=== PATIENT | female | born 1975 | race Caucasian/White ===

== ENCOUNTER 2021-01-26 19:09 | Emergency (ER) | payer OTHER ==
[~2021-01-26] VITALS: Ht 157.5 cm; Wt 90.3 kg
[~2021-01-26 19:09] MED LIST: HYDACE5 PO; IBUP600 PO; MIGRAINE RELIE1 EACH
== END 2021-01-26 21:15 | disposition left against medical advice (07) ==
LOC: ER 19:09
DX: M79.674 Pain in right toe(s) (principal); Z53.21 Procedure and treatment not carried out due to patient leaving prior to being seen by health care provider
CPT/HCPCS: 73660; 99283-25

== ENCOUNTER 2021-06-28 00:56 | Emergency (ER) | payer OTHER ==
[~2021-06-28] VITALS: Ht 160 cm; Wt 90.7 kg
[2021-06-28] MEDS ORDERED: IBUP400 PO (03:18)
[2021-06-28] MEDS ORDERED: ACET500 PO (03:18)
== END 2021-06-28 03:35 | disposition home or self-care (01) ==
LOC: ER 00:56
DX: M21.611 Bunion of right foot (principal); M79.674 Pain in right toe(s); Z88.6 Allergy status to analgesic agent; Z91.040 Latex allergy status
CPT/HCPCS: 73630; 99283-25

== ENCOUNTER → 2023-04-30 | Outpatient (CLI) | payer OTHER ==
[~2023-04-30] MED LIST changes: +ACET500 PO; +IBUP400 PO
[2023-05-01 14:09] LABS: HPV 16 Negative (Negative); HPV 18 Negative (Negative); HPV OTHER HR TYPES Negative (Negative)
== END | disposition home or self-care (01) ==
LOC: LAB SHORT 15:06 → LAB 15:06
PROVIDERS: Family Medicine
DX: Z01.419 Encounter for gynecological examination (general) (routine) without abnormal findings (principal)
CPT/HCPCS: 87624; G0145

== ENCOUNTER → 2024-05-06 | Outpatient (CLI) | payer OTHER ==
[2024-05-15 06:07] LABS: HPV HIGH RISK BY TMA Not Detected; HPV SOURCE Vaginal
== END ==
LOC: LAB SHORT 10:53 → LAB 10:53
PROVIDERS: Family Medicine
DX: Z01.419 Encounter for gynecological examination (general) (routine) without abnormal findings (principal)
CPT/HCPCS: 87624; G0123